=== PATIENT | male | born 1990 ===

== ENCOUNTER 2021-05-16 12:33 | Emergency (ER) | payer OTHER ==
[~2021-05-16] VITALS: Ht 167.6 cm; Wt 71.2 kg
[2021-05-16] MEDS ORDERED: ZOLOFT20 MG/1 ML PO (13:02)
== END 2021-05-16 17:05 | disposition home or self-care (01) ==
LOC: ER 12:33
DX: A90 Dengue fever [classical dengue] (principal); E86.0 Dehydration; Z11.52 Encounter for screening for COVID-19